=== PATIENT | female | born 1990 | race Hispanic/Latino ===

== ENCOUNTER 2020-09-17 22:26 | Emergency (ER) | payer SELFPAY ==
[~2020-09-17] VITALS: Ht 154.9 cm; Wt 63.5 kg
[2020-09-17 22:42] LABS: CLARITY,URINE SL CLOUDY (CLEAR); COLOR,URINE YELLOW (YELLOW); KETONES,URINE NEGATIVE (NEGATIVE); LEUKOCYTE ESTERASE ,URINE SMALL (NEGATIVE); NITRITE,URINE NEGATIVE (NEGATIVE); PREGNANCY TEST, URINE NEGATIVE (NEGATIVE); PROTEIN,URINE DIPSTICK NEGATIVE (NEGATIVE); URINE UROBILINOGEN 0.2 mg/dL (0.2 - 1)
[2020-09-17 22:49] LABS: BACTERIA,URINE FEW /HPF; EPITHELIAL CELLS,URINE FEW /LPF; WBC,URINE (MAN) 21-50 /HPF (0-5)
[2020-09-17] MEDS ORDERED: TRIMETHOPRIM/SULFAMETHOXAZOLE 160-800 MG TAB PO ONE (23:00)
[2020-09-17] MEDS ORDERED: PHENAZOPYRIDINE HCL 100 MG TAB PO PRN (23:00)
[2020-09-17] MEDS ORDERED: BACTRIM DS TAB1 EACH PO (23:03)
[2020-09-17] MEDS ORDERED: PYRIDIUM100 MG PO (23:03)
== END 2020-09-17 23:23 | disposition home or self-care (01) ==
LOC: ER 23:07
DX: R30.0 Dysuria (principal); N39.0 Urinary tract infection, site not specified; R31.9 Hematuria, unspecified
CPT/HCPCS: 81001; 81025; 99283